=== PATIENT | male | born 1985 | race Caucasian/White ===

== ENCOUNTER 2021-01-13 21:16 | Emergency (ER) | payer MEDICAID, SELFPAY ==
[~2021-01-13] VITALS: Ht 160 cm; Wt 68.9 kg
[2021-01-13 21:23] VITALS: BP_SYST 172
[2021-01-14] MEDS ORDERED: DEXAMETHASONE SOD PHOSPHATE 10 MG/ML VIAL IM ONE (01:15)
[2021-01-14] MEDS ORDERED: DEXAMETHASONE SOD PHOSPHATE 10 MG/ML VIAL ONE (01:30)
[2021-01-14] MEDS ORDERED: FAMO20TA8 PO (02:37)
[2021-01-14] MEDS ORDERED: LORA10TA7 PO (02:37)
[2021-01-14] MEDS ORDERED: PRED20TA PO (02:37)
[2021-01-14] MEDS ORDERED: LORATADINE 10 MG TABLET PO ONE (02:40)
[2021-01-14] MEDS ORDERED: LORATADINE 10 MG TABLET ONE (02:42)
[2021-01-14 02:44] VITALS: BP_SYST 172
== END 2021-01-14 02:44 | disposition home or self-care (01) ==
LOC: SED 21:16
DX: T78.40XA Allergy, unspecified, initial encounter (principal); Z20.822 Contact with and (suspected) exposure to COVID-19; Z79.899 Other long term (current) drug therapy; X58.XXXA Exposure to other specified factors, initial encounter
CPT/HCPCS: 87426; 96372; 99283; J1100; 36415